=== PATIENT | male | born 1960 | race Caucasian/White ===

== ENCOUNTER → 2016-05-07 | Outpatient (CLI) | payer BC ==
[~2016-05-07] VITALS: Ht 177.8 cm; Wt 89.8 kg
[~2016-05-07] MED LIST: BUSPIRONE HCL10 MG PO; BUSPIRONE HCL15 MG PO; CONSTULOSE10 GM/15 M PO; DILAUDID 2 MG TA2 MG PO; FIORICET TAB1 EA PO; MELOXICAM15 MG PO; MIRTAZAPINE15 MG PO; MULTIVITAMINS1 EAC1 PO; OXYCODONE HCL10 MG PO; PANTOPRAZOLE SO40 MG PO; PROVENTIL HFA 61 INH INH; PULMICORT0.25 MG/1 INH; SINGULAIR10 MG PO; VITAMIN D31000 UNIT PO; WELLBUTRIN XL300 M1 PO; XARELTO10 MG PO; ZOFRAN4 MG PO; [UNRECOGNIZED DRUG - OTHER] TP
[2016-05-07 13:40] LABS: HEMOGLOBIN 13.4 gm/dl (14.0-17.5); RED BLOOD COUNT 4.06 M/UL (4.20-5.50); WHITE BLOOD COUNT 3.5 K/UL (4.5-11.0)
[2016-05-07 13:41] LABS: BUN/CREATININE RATIO 13 (0-10)
== END ==
LOC: OPSV2 12:01
PROVIDERS: Orthopaedic Surgery
DX: Z01.812 Encounter for preprocedural laboratory examination (principal); Z01.810 Encounter for preprocedural cardiovascular examination; M25.552 Pain in left hip; M87.9 Osteonecrosis, unspecified; K74.60 Unspecified cirrhosis of liver; J44.9 Chronic obstructive pulmonary disease, unspecified; I10 Essential (primary) hypertension
CPT/HCPCS: 36415; 80048; 81001; 85025; 93005

== ENCOUNTER → 2016-05-13 | Outpatient (CLI) | payer BC ==
[2016-05-13 10:54] LABS: BUN/CREATININE RATIO 10 (0-10)
== END ==
LOC: LAB 09:45
PROVIDERS: Orthopaedic Surgery
DX: Z01.818 Encounter for other preprocedural examination (principal); M87.852 Other osteonecrosis, left femur; K74.60 Unspecified cirrhosis of liver; J44.9 Chronic obstructive pulmonary disease, unspecified; I10 Essential (primary) hypertension
CPT/HCPCS: 36415; 71020; 80048; 86850; 86900; 86901

== ENCOUNTER 2016-05-14 15:00 | Inpatient (IN) | payer BC, OTHER ==
[~2016-05-14] VITALS: Ht 177.8 cm; Wt 89.8 kg
[~2016-05-14 15:00] MED LIST changes: -OXYCODONE HCL10 MG PO
[2016-05-16 07:39] LABS: BUN/CREATININE RATIO 12 (0-10)
[2016-05-16 07:43] LABS: HEMOGLOBIN 13.6 gm/dl (14.0-17.5); RED BLOOD COUNT 4.12 M/UL (4.20-5.50); WHITE BLOOD COUNT 5.6 K/UL (4.5-11.0)
[2016-05-17 05:58] LABS: HEMOGLOBIN 11.9 gm/dl (14.0-17.5); RED BLOOD COUNT 3.67 M/UL (4.20-5.50); WHITE BLOOD COUNT 4.9 K/UL (4.5-11.0)
[2016-05-17 06:16] LABS: BUN/CREATININE RATIO 8 (0-10)
[2016-05-18 05:44] LABS: HEMOGLOBIN 12.4 gm/dl (14.0-17.5); RED BLOOD COUNT 3.78 M/UL (4.20-5.50)
[2016-05-18 05:45] LABS: WHITE BLOOD COUNT 7.7 K/UL (4.5-11.0)
[2016-05-18 05:58] LABS: BUN/CREATININE RATIO 8 (0-10)
[2016-05-18] MEDS ORDERED: OXYCODONE HCL10 MG PO (13:19)
--- NOTE | 2016-05-18 15:10 | NUR ---
CALLED PATIENT AT HOME TO LET HIM KNOW PER DR. MORENO TO CONT. HIS HOME DOSE OF XARELTO, ORDER ON D/C MED REQ. PATIENT VERBALIZED UNDERSTANDINT
== END 2016-05-18 14:41 | disposition home health service (06) | DRG 470 ==
LOC: ZOBSOF 05-16 05:34 → M/S 05-16 13:47
PROVIDERS: ADMIT Orthopaedic Surgery
PROC: 0SRB04A Replacement of Left Hip Joint with Ceramic on Polyethylene Synthetic Substitute, Uncemented, Open Approach (ICD-10-PCS; principal; 2016-05-16 08:45)
DX: M16.12 Unilateral primary osteoarthritis, left hip (principal); M87.9 Osteonecrosis, unspecified; E78.5 Hyperlipidemia, unspecified; J44.9 Chronic obstructive pulmonary disease, unspecified; K70.30 Alcoholic cirrhosis of liver without ascites; K21.9 Gastro-esophageal reflux disease without esophagitis; G89.29 Other chronic pain; M25.552 Pain in left hip; F32.9 Major depressive disorder, single episode, unspecified; F17.210 Nicotine dependence, cigarettes, uncomplicated; F10.21 Alcohol dependence, in remission; K76.0 Fatty (change of) liver, not elsewhere classified; Z96.641 Presence of right artificial hip joint; Z79.51 Long term (current) use of inhaled steroids; Z79.899 Other long term (current) drug therapy; Z80.9 Family history of malignant neoplasm, unspecified; Z82.49 Family history of ischemic heart disease and other diseases of the circulatory system; Z83.3 Family history of diabetes mellitus; Z82.3 Family history of stroke
CPT/HCPCS: 36415; 72170; 76000; 80048; 80053; 85025; 85027; 86850; 86900; 86901; 94640; 94664; 97116; 97535; C1776; J0690; J0735; J1885; J2250; J2274; J2795; J3010; J3370; J7030; J7050; J7120

== ENCOUNTER → 2016-06-25 | Outpatient (CLI) | payer BC ==
[~2016-06-25] MED LIST changes: +OXYCODONE HCL10 MG PO
== END ==
LOC: HEART 5 09:11
DX: J44.9 Chronic obstructive pulmonary disease, unspecified (principal); R06.02 Shortness of breath; Z87.891 Personal history of nicotine dependence
CPT/HCPCS: 94010

== ENCOUNTER 2016-07-24 18:01 | Emergency (ER) | payer BC ==
[2016-07-24 20:29] LABS: RED BLOOD COUNT 4.02 M/UL (4.20-5.50); WHITE BLOOD COUNT 7.4 K/UL (4.5-11.0)
[2016-07-24 20:46] LABS: BUN/CREATININE RATIO 10 (0-10)
== END 2016-07-25 03:40 | disposition short-term general hospital (02) ==
LOC: ER1 18:01
PROVIDERS: Emergency Medicine
DX: R45.851 Suicidal ideations (principal); F32.9 Major depressive disorder, single episode, unspecified; E78.00 Pure hypercholesterolemia, unspecified; I10 Essential (primary) hypertension; F41.9 Anxiety disorder, unspecified; E87.6 Hypokalemia
CPT/HCPCS: 36415; 80053; 80307; 81001; 85025; 99284; G0480

== ENCOUNTER → 2016-08-17 | Outpatient (CLI) | payer OTHER | LOC: CT 07:48 | DX: R51 Headache (principal) | CPT/HCPCS: 70450 ==